=== PATIENT | male | born 1995 | race Caucasian/White ===

== ENCOUNTER → 2017-08-15 | Outpatient (CLI) | payer OTHER ==
[2017-08-16 04:11] LABS: RPR Non Reactive (Non Reactive)
[2017-08-18 09:34] LABS: Hepatitis B Surface Antibody Negative
[2017-08-18 09:44] LABS: Hepatitis B Surface Antigen Negative (Negative)
== END | disposition home or self-care (01) ==
LOC: LAB 14:57
DX: Z11.3 Encounter for screening for infections with a predominantly sexual mode of transmission (principal)
CPT/HCPCS: 36415; 86592; 86703; 86706; 86803; 87340